=== PATIENT | male | born 2005 | race Hispanic/Latino ===

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

== ENCOUNTER 2023-05-11 15:10 | Emergency (ER) | payer OTHER, SELFPAY ==
--- NOTE | 2023-05-11 15:27 | ED.URI ---
HPI - URI/Sore Throat General Chief Complaint: Upper Respiratory Infection Stated Complaint: Sore Throat,Dizziness,Fatigue Time Seen by Provider: 05/11/23 15:27 Source: patient Mode of arrival: ambulatory Limitations: no limitations History of Present Illness HPI Narrative: 17-year-old male presents with complaint of sore throat, nasal congestion, cough, fatigue, fever for 2 days. Taking DayQuil to treat his symptoms. Positive nausea. Eating and drinking normally. All systems reviewed and negative except as noted above. Related Data Home Medications Medication Instructions Recorded Confirmed No Home Medications 11/30/22 05/11/23 Allergies Allergy/AdvReac Type Severity Reaction Status Date / Time No Known Allergies Allergy Unknown Verified 05/11/23 15:24 Review of Systems Review of Systems: CONSTITUTIONAL: Reports fever, chills, or sweats. EYES: Denies visual changes, redness, or discharge. ENT: Reports rhinorrhea, congestion, sore throat. Otalgia. CARDIOVASCULAR: Denies chest pain, palpitations, or edema. RESPIRATORY: Reports cough. Denies dyspnea. GASTROINTESTINAL: Denies abdominal pain, nausea, vomiting, or diarrhea. GENITOURINARY: Denies dysuria or hematuria. SKIN: Denies rash or itching. MUSCULOSKELETAL: Denies back pain, joint pain, or myalgia. NEUROLOGIC: Denies headache, numbness, or weakness. PSYCHIATRIC: Denies anxiety or depression. All other systems reviewed are negative, except as documented in HPI. PMFSH Surgical History Surgical History History of fracture of right ankle s/p ORIF Family History Family History Father Diabetes mellitus Hypertension Cerebrovascular accident Social History Social History Smoking status: Never smoker Gender identity (if verbalized by the patient): Male Sexual Orientation (if Verbalized by the Patient): Straight or Heterosexual Comments At time of signature, agree with nursing past medical, surgical, social and family history. There is no relevant family history pertinent to the presenting complaint. Exam Narrative: GENERAL: This is a well-nourished, well-developed patient, in no apparent distress. HEAD: normocephalic, atraumatic. EYES: PERRL. Sclera clear/white. Vision is grossly intact. EARS: External ears normal, auditory canals clear and without drainage, TMs normal without perforation. Hearing grossly intact. NOSE: External nose normal with no obvious nasal discharge, nares without redness, no rhinorrhea. THROAT: Mucous membranes moist, erythematous without exudates. NECK: Neck supple, non-tender without lymphadenopathy, masses or thyromegaly. CARDIOVASCULAR: Regular rate and rhythm without murmurs, gallops, or rubs. RESPIRATORY: Clear to auscultation. Breath sounds equal bilaterally. No wheezes, rales, or rhonchi. SKIN: warm, Dry, intact with no suspicious lesions or rash, good texture and turgor. NEURO: awake, alert, and oriented to person, place and time. There were no obvious focal neurologic abnormalities. EXTREMITIES: No joint tenderness, effusion, or edema noted. Course Course Level of Care: Express Care Visit Vital Signs Vital signs: Vital Signs Temperature 37.8 C H 05/11/23 15:30 Pulse Rate 107 H 05/11/23 15:30 Respiratory Rate 16 05/11/23 15:30 Blood Pressure 118/87 05/11/23 15:30 Pulse Oximetry 100 05/11/23 15:30 Temperature 37.8 C H 05/11/23 15:30 Pulse Rate 107 H 05/11/23 15:30 Respiratory Rate 16 05/11/23 15:30 Blood Pressure 118/87 05/11/23 15:30 Pulse Oximetry 100 05/11/23 15:30 Reviewed MDM - URI/Sore Throat MDM Narrative Medical decision making narrative: Patient is aware of diagnosis, understands and agrees to treatment plan. Anticipatory guidance given. Patient agrees to follow-up as directed and
[2023-05-11 15:30] VITALS: BP 118/87; PULSE 107; RESP 16; TEMP 37.8; O2SAT 100
== END 2023-05-11 15:58 | disposition home or self-care (01) ==
PROVIDERS: Emergency Provider Nurse Practitioner Family; PCP Family Medicine
DX: J06.9 Acute upper respiratory infection, unspecified (principal); Z20.822 Contact with and (suspected) exposure to COVID-19
CPT/HCPCS: 87081; 87426; 87804; 87880; 99213; C9803; G0463

== ENCOUNTER 2023-05-13 09:28 | Outpatient (CLI) | payer OTHER, SELFPAY ==
[2023-05-13 11:00] LABS: Influenza A QL RT-PCR Negative (Negative); Influenza B QL RT-PCR Negative (Negative); SARS-CoV-2 RNA PCR Negative (Negative)
== END 2023-05-13 09:29 | disposition home or self-care (01) ==
PROVIDERS: PCP Family Medicine; Visit Provider Physician Assistant
DX: R50.9 Fever, unspecified (principal); Z20.822 Contact with and (suspected) exposure to COVID-19
CPT/HCPCS: 87636

== ENCOUNTER 2024-02-11 12:39 | Emergency (ER) | payer OTHER, SELFPAY ==
[2024-02-11 12:46] VITALS: BP 148/86; PULSE 92; RESP 16; TEMP 36.8; O2SAT 99
--- NOTE | 2024-02-11 12:51 | ED.EAR ---
HPI - Ear Problem General Chief complaint: Ear Stated complaint: R EAR CLOGGED Time Seen by Provider: 02/11/24 12:51 Source: patient, RN notes reviewed and old records reviewed Mode of arrival: ambulatory Limitations: no limitations History of Present Illness HPI Narrative: patient presents with complaints of right ear discomfort for a few days. He reports feelings of muffled hearing and stuffiness. He denies any fever, chills, sweats. He has a deviated septum, uses Flonase daily for congestion. He has not noticed any unusual congestion. He denies any injury or trauma. Voices no other concerns today Related Data Allergies Allergy/AdvReac Type Severity Reaction Status Date / Time No Known Allergies Allergy Unknown Verified 06/01/23 08:30 Review of Systems Review of Systems: All systems reviewed & are unremarkable except as noted in HPI and below Constitutional: Constitutional: Reports no additional constitutional complaints ENT: Reports system reviewed and no additional complaints, except as documented and Reports as per HPI Cardiovascular: Cardiovascular: Reports no additional cardiovascular complaints Respiratory: Respiratory: Reports no additional respiratory complaints Gastrointestinal: Gastrointestinal: Reports no additional gastrointestinal complaints [facility] Surgical History Surgical History History of fracture of right ankle s/p ORIF Family History Family History Father Diabetes mellitus Hypertension Cerebrovascular accident Grandparent Diabetes mellitus Heart disease Social History Social History Smoking status: Never smoker Alcohol intake: never Substance use: never Substance use type: does not use Lack of Transportation: No Lack of Food: Never True Current Housing: I Have Housing Concerned About Future Housing: No Difficulty Paying Gas/Electric Bills: No Difficulty Paying for Meds: No Currently Unemployed: No Education: High School Diploma/GED Difficulty w/ Childcare or Family Care: No Gender identity (if verbalized by the patient): Male Sexual Orientation (if Verbalized by the Patient): Straight or Heterosexual Comments At the time of my signature, I reviewed and agree with the nursing past medical, surgical, social, and family history. There is no relevant family history pertinent to the patient complaint. Exam Const: General: cooperative, no acute distress, alert and awake Orientation/consciousness: oriented to person, oriented to place and oriented to time HENMT: Head: normal to inspection Ears: TM abnormal (right) bulging, dull and erythematous Throat: posterior oropharynx normal Resp: Effort & Inspection: normal respiratory effort and able to speak in complete sentences Auscultation: clear to auscultation bilaterally, no crackles, no rales, no rhonchi and no wheezes Cardio: Palpation: normal PMI Rate: regular rate Rhythm: regular rhythm Heart sounds: S1 normal heart sound present and S2 normal heart sound present Neuro: General: oriented to person, oriented to place and oriented to time Cranial nerves: Yes CN's II-XII intact bilaterally Psych: Appearance: grossly normal Thought process: Normal thought process present Insight: Good insight present (Psych) Judgement: Good judgement present (Psych) Course Course Level of Care: Express Care Visit Vital Signs Vital signs: Vital Signs Temperature 98.3 F 02/11/24 12:46 Pulse Rate 92 02/11/24 12:46 Respiratory Rate 16 02/11/24 12:46 Blood Pressure 148/86 H 02/11/24 12:46 Pulse Oximetry 99 02/11/24 12:46 Temperature 98.3 F 02/11/24 12:46 Pulse Rate 92 02/11/24 12:46 Respiratory Rate 16 02/11/24 12:46 Blood Pressure 148/86 H 02/11/24 12:46 Pulse Oximetry 99 02/11/24 12:46 Reviewed M
== END 2024-02-11 13:00 | disposition home or self-care (01) ==
PROVIDERS: Emergency Provider Nurse Practitioner Family; PCP Family Medicine
DX: H66.001 Acute suppurative otitis media without spontaneous rupture of ear drum, right ear (principal)
CPT/HCPCS: 99213; G0463

== ENCOUNTER 2024-03-16 15:37 | Emergency (ER) | payer OTHER, SELFPAY ==
--- NOTE | 2024-03-16 15:48 | ED.GENADULT ---
HPI - General Adult General Chief complaint: Skin/Abscess/Foreign Body Stated complaint: Cyst Time Seen by Provider: 03/16/24 15:48 Source: patient, RN notes reviewed and old records reviewed Mode of arrival: ambulatory Limitations: no limitations History of Present Illness HPI narrative: 18-year-old male to Express [facility] for complaint wound to mid upper buttocks for 3 days. Patient states that wound began draining yesterday. Patient states that area is acutely tender to touch and painful when sitting down. Patient denies any pertinent medical history, states this is the 1st time this has occurred. Patient denies fever, nausea, myalgias, chills, allergies. Patient very anxious in exam room about having the area inspected and treated by [facility] staff. Respirations even and nonlabored. Patient in no acute distress. Related Data Allergies Allergy/AdvReac Type Severity Reaction Status Date / Time No Known Allergies Allergy Unknown Verified 03/16/24 15:48 Review of Systems Review of Systems: All systems reviewed & are unremarkable except as noted in HPI and below Constitutional: Constitutional: Reports no additional constitutional complaints Eyes: Eyes: Reports no additional eye complaints ENT: Reports system reviewed and no additional complaints, except as documented Cardiovascular: Cardiovascular: Reports no additional cardiovascular complaints, Denies chest pain and Denies dyspnea Respiratory: Respiratory: Reports no additional respiratory complaints, Denies cough and Denies dyspnea Musculoskeletal: Musculoskeletal: Reports no additional musculoskeletal complaints Integumentary/Breasts: Skin/Breast: Reports as per HPI and Reports lesions ( Mid upper buttocks) Neurologic: Reports system reviewed and no additional complaints, except as documented Psychiatric: Psychiatric: Reports no additional psychiatric complaints [facility] Surgical History Surgical History History of fracture of right ankle s/p ORIF Family History Family History Father Diabetes mellitus Hypertension Cerebrovascular accident Grandparent Diabetes mellitus Heart disease Social History Social History Smoking status: Never smoker Alcohol intake: never Substance use: never Substance use type: does not use Lack of Transportation: No Lack of Food: Never True Current Housing: I Have Housing Concerned About Future Housing: No Difficulty Paying Gas/Electric Bills: No Difficulty Paying for Meds: No Currently Unemployed: No Education: High School Diploma/GED Difficulty w/ Childcare or Family Care: No Gender identity (if verbalized by the patient): Male Sexual Orientation (if Verbalized by the Patient): Straight or Heterosexual Comments At the time of my signature, I reviewed and agree with the nursing past medical, surgical, social, and family history. There is no relevant family history pertinent to the patient complaint. Exam Const: General: cooperative, healthy appearing, no acute distress, alert, anxious, uncomfortable and well nourished Nutritional Appearance: well nourished Orientation/consciousness: patient oriented x3 Limitations: no limitations HENMT: Head: normal to inspection Ears: external ears normal Face/Nose/Sinus: Normal external nose present, Normal nares present, normal facial exam, No erythema and No edema Face and sinus: normal facial exam, no erythema and no edema Mouth: Yes Normal oral and palatal mucosa present Eyes: General: appearance normal, both eyes and all related structures Neck: Neck: normal visual inspection, full ROM and no meningeal signs Chest: Chest palpation & inspection: normal inspection of the chest Resp: Effort & Inspection: normal respiratory effort and able to speak in complete
[2024-03-16 15:49] VITALS: BP 163/89; PULSE 71; RESP 16; TEMP 36.7; O2SAT 100
[2024-03-16] MEDS: LIDOCAINE HCL 1% LOCAL INJ 2 ML AMPUL 4 ML INFILTRATE ×2 (16:20→16:30)
== END 2024-03-16 16:42 | disposition home or self-care (01) ==
PROVIDERS: Emergency Provider Nurse Practitioner Family; PCP Family Medicine
DX: L02.212 Cutaneous abscess of back [any part, except buttock and flank] (principal)
CPT/HCPCS: 10060; 87070; 87075; 87076; 87205; 99213; G0463

== ENCOUNTER 2024-10-22 16:11 | Emergency (ER) | payer OTHER, SELFPAY ==
--- NOTE | 2024-10-22 16:13 | ED.NAVMDI ---
HPI - Nausea/Vomiting/Diarrhea General Chief complaint: Nausea/Vomiting/Diarrhea Stated complaint: Vomiting Source: patient and RN notes reviewed Mode of arrival: ambulatory Limitations: no limitations History of Present Illness HPI Narrative: Patient is a 19-year-old male who presents to the [facility] after having 1 episode of vomiting while at work today. Patient states that he works at [employer]. He reports having a sore throat the majority of the day prior to vomiting. He denies abdominal pain or diarrhea. Denies cough, chest pain, shortness of breath. Denies recent fevers. He was advised by his employer to come get checked out. Patient does state that he was very nervous this morning as he had a big test so he is unsure whether not the vomiting was related to anxiety. Related Data Allergies Allergy/AdvReac Type Severity Reaction Status Date / Time No Known Allergies Allergy Unknown Verified 10/22/24 16:21 Review of Systems Review of Systems: CONSTITUTIONAL: Denies fever, chills, or sweats. EYES: Denies visual changes, redness, or discharge. ENT: Denies otalgia but reports sore throat CARDIOVASCULAR: Denies chest pain, palpitations, or edema. RESPIRATORY: Denies cough or dyspnea. GASTROINTESTINAL: Denies abdominal pain, nausea, diarrhea but reports vomiting GENITOURINARY: Denies dysuria or hematuria. SKIN: Denies rash or itching. MUSCULOSKELETAL: Denies back pain, joint pain, or myalgia. NEUROLOGIC: Denies headache, numbness, or weakness. Pertinent positives per HPI. [facility] Surgical History Surgical History History of fracture of right ankle s/p ORIF Family History Family History Father Diabetes mellitus Hypertension Cerebrovascular accident Grandparent Diabetes mellitus Heart disease Social History Social History Smoking status: Never smoker Alcohol intake: never Substance use: never Substance use type: does not use Lack of Transportation: No Lack of Food: Never True Current Housing: I Have Housing Concerned About Future Housing: No Difficulty Paying Gas/Electric Bills: No Difficulty Paying for Meds: No Currently Unemployed: No Education: High School Diploma/GED Difficulty w/ Childcare or Family Care: No Gender identity (if verbalized by the patient): Male Sexual Orientation (if Verbalized by the Patient): Straight or Heterosexual Comments At the time of my signature, I reviewed and agree with the nursing past medical, surgical, social, and family history. There is no relevant family history pertinent to the patient complaint. Exam Narrative: GENERAL: This is a well-nourished, well-developed patient, in no apparent distress. HEAD: normocephalic, atraumatic. EYES: Sclera clear/white. Vision is grossly intact. EARS: External ears normal, auditory canals clear and without drainage, TMs normal without perforation. Hearing grossly intact. NOSE: External nose normal with no obvious nasal discharge, nares without redness, no rhinorrhea. THROAT: Mucous membranes moist, oropharyngeal erythema without exudate or ulceration. NECK: Neck supple, non-tender without lymphadenopathy, masses or thyromegaly. CARDIOVASCULAR: Regular rate and rhythm without murmurs, gallops, or rubs. RESPIRATORY: Clear to auscultation. Breath sounds equal bilaterally. No wheezes, rales, or rhonchi. GASTROINTESTINAL: Abdomen soft, non-tender, nondistended. Bowel sounds are active. No hepato-splenomegaly, or palpable masses. No guarding. SKIN: warm, intact with no suspicious lesions or rash, good texture and turgor. NEURO: awake, alert, and oriented to person, place and time. There were no obvious focal neurologic abnormalities. Course Course Level of Care: Express Care Visit Vital Signs Vital signs: Vital Signs Temperature 98.7 F 10/22/24 16:18 Pulse Rate 81 10/22/24 16:18 Respiratory Rate 18 10/22/24 16:18 Blood Pressure 152/85 H 10/22/24 16:18 Pulse Oximetry 100 10/22/24 16:18 Temperature 98.7 F 10/22/24 16:18 Pulse Rate 81 10/22/24 16:18 Respiratory Rate 18 10/22/24 16:18 Blood Pressure 152/85 H 10/22/24 16:18 Pulse Oximetry 100 10/22/24 16:18 Reviewed MDM - Nausea/Vomiting/Diarrhea Differential Diagnosis Differential diagnosis: Likely gastroenteritis and other (strep, viral illness) Lab Data Attestation: I reviewed the patient's lab results. Critical Care Time Critical Care Time Critical Care Time: No Discharge Plan Discharge Clinical Impression: Vomiting Qualifiers: Vomiting type: unspecified Nausea presence: unspecified Qualified Code(s): R11.10 - Vomiting, unspecified Patient Disposition: Home, Self-Care Condition: Stable Instructions: Acute Nausea and Vomiting (ED) Additional Instructions: Rest and push fluids. Follow-up with PCP as needed. Patient Language: [place] Island[place] Prescriptions: New ondansetron 4 mg tablet,disintegrating 4 mg PO Q8H PRN (Reason: nausea and vomiting) Qty: 10 0RF Follow-up/Referrals: PHYSICIAN,ASSET SPECIALIST [Primary Care Provider] - Stand Alone Forms: Work/School Release IP Time of Disposition: 16:33
[2024-10-22 16:18] VITALS: BP 152/85; PULSE 81; RESP 18; TEMP 37.1; O2SAT 100
[2024-10-22 16:35] LABS: EDSTREPNEGPOS1 Negative (Negative)
== END 2024-10-22 16:34 | disposition home or self-care (01) ==
PROVIDERS: Emergency Provider Nurse Practitioner
DX: R11.10 Vomiting, unspecified (principal)
CPT/HCPCS: 87081; 87880; 99213; G0463

== ENCOUNTER 2025-05-18 03:27 | Emergency (ER) | payer OTHER, SELFPAY ==
--- NOTE | ~2025-05-18 | XR_ITS ---
Examination: XR chest 2V Clinical History: chest tightness Comparison: None Technique: PA and Lateral Findings: Cardiomediastinal silhouette normal size and configuration. Lungs clear. No acute bony abnormality. IMPRESSION: 1. No acute cardiopulmonary findings. Reviewed, dictated and finalized at location R.
[2025-05-18 03:31] VITALS: BP 166/96; PULSE 86; RESP 22; TEMP 36.6; O2SAT 99
--- NOTE | 2025-05-18 03:37 | ECG_ITS ---
Test Date: 2025-05-18 03:49:12 Measurements Intervals Garber Rate: 75 P: 52 OH: 147 QRS: 87 QRSD: 104 T: 47 QT: 358 QTc: 400 Interpretive Statements SINUS RHYTHM ST ELEVATION IN DIFFUSE LEADS- PROBABLY EARLY REPOLARIZATION BASELINE ARTIFACT- I, III, AVR, AVL, V2 BORDERLINE ECG No previous ECG available for comparison Electronically Signed On 05-18-2025 08:17:49 CDT by Rafa Jose D.O.
[2025-05-18 03:54] LABS: Hematocrit 46.0 % (42.0-52.0); Hemoglobin 15.7 g/dL (14.0-18.0); Immature Granulocyte Percent A 0.3 % (0-0.5); Lymphocytes Absolute Auto 3.70 K/mm3 (0.9-3.2); Mean Corpuscular HGB Conc 34.1 g/dl (32-36); Mean Corpuscular Hemoglobin 28.3 pg (26-34); Mean Corpuscular Volume 82.9 fl (80-100); Nucleated Red Blood Cells Absolute Auto 0.000 K/mm3 (0.0-0.012); Nucleated Red Blood Cells Perc 0.0 % (0.0-0.2); Platelet Count Result 203 k/mm3 (150-375); Red Blood Count 5.55 M/mm3 (4.6-6.20); White Blood Count 9.4 K/mm3 (4.5-10.0)
[2025-05-18 04:04] LABS: Alanine Aminotransferase 104 U/L (6-50); Albumin Level 4.7 g/dL (3.5-5.1); Alkaline Phosphatase 94 U/L (38-126); Anion Gap 11 mmol/L (4-12); Aspartate Amino Transferase 58 U/L (17-59); Bilirubin,Total 0.5 mg/dL (0.2-1.3); Blood Urea Nitrogen 12 mg/dL (9-20); Calcium 9.1 mg/dL (8.4-10.2); Carbon Dioxide 23 mmol/L (22-30); Chloride 102 mmol/L (98-107); Estimated CRCL calculation 123 ml/min; Estimated Glomerular Filt Rate > 60; Glucose 112 mg/dL (65-110); Lipase 60 U/L (23-300); Potassium 3.4 mmol/L (3.4-5.0); Sodium 136 mmol/L (137-145); Total Protein 7.7 g/dL (6.3-8.2)
[2025-05-18 04:16] LABS: Troponin I < 0.012 ng/mL (0.000-0.034)
--- NOTE | 2025-05-18 04:28 | ED.WEAKNESS ---
HPI - Weakness General Chief complaint: Weakness Stated complaint: weakness, n/v Time Seen by Provider: 05/18/25 04:27 Source: patient and EMS Mode of arrival: EMS Limitations: no limitations History of Present Illness HPI Narrative: This is a 19-year-old male with no significant past medical history presents the ED for chest pain, lightheadedness, nausea. Patient states that he was sitting at home when he had onset of the symptoms. They last about an hour before EMS showed up at which point the dizziness became slightly worse. Symptoms have improved significantly since then. He does report some mild lightheadedness. Denies recent illnesses. No known cardiac history. No known family cardiac history. Denies drugs alcohol new medications. Denies any new stress. He has never had anything like this before. Related Data Allergies Allergy/AdvReac Type Severity Reaction Status Date / Time No Known Allergies Allergy Unknown Verified 10/22/24 16:21 Review of Systems Review of Systems: Gen.: Denies fevers or chills Eyes: Denies eye pain or visual change ENT: Denies congestion Respiratory: Denies shortness of breath or cough CV: As per HPI GI: Denies abdominal pain nausea, emesis or diarrhea denies burning, urgency, frequency or hematuria Musculoskeletal: Denies back pain or muscle pain Neuro: Denies numbness, tingling, weakness or focal weakness Skin: Denies rash Except as documented, all other systems reviewed and negative [facility] Surgical History Surgical History History of fracture of right ankle s/p ORIF Family History Family History Father Diabetes mellitus Hypertension Cerebrovascular accident Grandparent Diabetes mellitus Heart disease Social History Social History Smoking status: Never smoker Alcohol intake: never Substance use: never Substance use type: does not use Lack of Transportation: No Lack of Food: Never True Current Housing: I Have Housing Concerned About Future Housing: No Difficulty Paying Gas/Electric Bills: No Difficulty Paying for Meds: No Currently Unemployed: No Education: High School Diploma/GED Difficulty w/ Childcare or Family Care: No Gender identity (if verbalized by the patient): Male Sexual Orientation (if Verbalized by the Patient): Straight or Heterosexual Exam Narrative: APPEARANCE: No acute distress, nontoxic, resting in bed EYES: EOMI HEENT: Normocephalic, atraumatic, OMM RESPIRATORY: No respiratory distress Clear to auscultation bilaterally with no rhonchi wheezing or rales. CARDIOVASCULAR: Regular rate and rhythm without murmurs rubs or gallops. ABDOMINAL: Soft, nontender, nondistended, no rebound or guarding MUSCULOSKELETAl: Moves all extremities. No clubbing, cyanosis or edema. NEURO: Awake and alert. Following commands, speech normal, no focal deficits SKIN:: Warm, dry. No rashes lesions or abrasions PSYCHIATRIC: Normal affect/mood, Course Vital Signs Vital signs: Vital Signs Temperature 97.8 F 05/18/25 03:31 Pulse Rate 86 05/18/25 03:31 Respiratory Rate 22 H 05/18/25 03:31 Blood Pressure 166/96 H 05/18/25 03:31 Pulse Oximetry 99 05/18/25 03:31 Oxygen Delivery Room Air 05/18/25 03:31 Temperature 98.2 F 05/18/25 06:11 Pulse Rate 82 05/18/25 06:11 Respiratory Rate 20 05/18/25 06:11 Blood Pressure 129/71 05/18/25 06:11 Pulse Oximetry 97 05/18/25 06:11 Oxygen Delivery Room Air 05/18/25 03:31 MDM - Weakness MDM Narrative Medical decision making narrative: 19-year-old male presenting for chest tightness with dizziness. On initial evaluation, patient was in no acute distress, afebrile, hemodynamically stable. Heart and lungs clear. Abdomen soft and nontender. Nonfocal neuro exam. Orthostatic blood pressures were obtained and were negative. CBC and CMP without significant abnormalities. Chest x-ray showed no acute process. EKG without concerning findings. Patient's EKGs and labs are without significant high risk changes. Cardiac risk factors reviewed. Patient is felt likely low risk for ACS and reasonable for further risk stratification testing as an outpatient. Pain was not sudden or maximal in onset without tearing or ripping quality. No other signs of symptoms suggest aortic dissection. A low-risk Wells criteria is noted, PE is felt to be unlikely. No pneumonia seen on evaluation today. Patient is felt to be a reasonable candidate for continued evaluation as an outpatient. Suspect patient's symptoms are more due to anxiety. He was given a referral to Dr. Carmona, family medicine Differential Diagnosis Differential diagnosis: Likely anemia, hypoglycemia, sepsis, dehydration and other (ACS anxiety, orthostatic hypotension) Medical Records Attestation: I reviewed the patient's medical records. Lab Data Attestation: I reviewed the patient's lab results. 05/18/25 03:47 05/18/25 03:47 Labs: Lab Results 05/18/25 05/18/25 Range/Units 03:47 05:54 WBC 9.4 (4.5-10.0) K/mm3 RBC 5.55 (4.6-6.20) M/mm3 Hgb 15.7 (14.0-18.0) g/dL Hct 46.0 (42.0-52.0) % MCV 82.9 (80-100) fl MCH 28.3 (26-34) pg MCHC 34.1 (32-36) g/dl RDW 12.4 (11.5-14.5) % Plt Count 203 (150-375) k/mm3 MPV 11.6 H (7.4-10.4) fl Immature Gran % (Auto) 0.3 (0-0.5) % Neut % (Auto) 52.5 (45.5-73.1) % Lymph % (Auto) 39.4 (18.3-44.2) % Moore % (Auto) 6.6 (2.6-8.5) % Eos % (Auto) 1.0 (0-4.4) % Baso % (Auto) 0.2 (0.2-1.2) % Lymph # (Auto) 3.70 H (0.9-3.2) K/mm3 Moore # (Auto) 0.6 (0.1-0.6) K/mm3 Eos # (Auto) 0.1 (0-0.3) K/mm3 Baso # (Auto) 0.0 (0.0-0.1) K/mm3 Abs Immat Gran (auto) 0.03 (0.00-0.031) K/mm3 Absolute Neuts (auto) 4.9 (1.3-6.7) K/mm3 Absolute Nucleated RBC 0.000 (0.0-0.012) K/mm3 Nucleated RBC % 0.0 (0.0-0.2) % PT 12.6 (11.1-14.7) Seconds INR 0.9 APTT 27.9 (22.3-36.8) Seconds Sodium 136 L (137-145) mmol/L Potassium 3.4 (3.4-5.0) mmol/L Chloride 102 (98-107) mmol/L Carbon Dioxide 23 (22-30) mmol/L Anion Gap 11 (4-12) mmol/L BUN 12 (9-20) mg/dL Creatinine 0.92 (0.7-1.3) mg/dL Estim Creat Clear Calc 123 ml/min Estimated GFR > 60 (59 - ) Glucose 112 H (65-110) mg/dL Calcium 9.1 (8.4-10.2) mg/dL Total Bilirubin 0.5 (0.2-1.3) mg/dL AST 58 (17-59) U/L ALT 104 H (6-50) U/L Alkaline Phosphatase 94 (38-126) U/L Troponin I < 0.012 (0.000-0.034) ng/mL Total Protein 7.7 (6.3-8.2) g/dL Albumin 4.7 (3.5-5.1) g/dL Lipase 60 (23-300) U/L Influenza A (RT-PCR) Negative (Negative) Influenza B (RT-PCR) Negative (Negative) RSV (RT-PCR) Negative (Negative) SARS-CoV-2 RNA (RT-PCR) Negative (Negative) Imaging Data Attestation: I personally reviewed and interpreted this imaging study as follows: My impression: Chest x-ray: Normal cardiac silhouette, no consolidations, no pleural effusions, no pulmonary vascular congestion Radiologist's impression: Impressions Chest X-Ray 05/18/25 06:16 IMPRESSION: 1. No acute cardiopulmonary findings. ECG Data EKG #1: Attestation: I personally reviewed and interpreted this ECG as follows: ECG completion date: 05/18/25 ECG completion time: 03:49 Interpretation: Normal sinus rhythm, normal axis, normal intervals, no acute ST or T-wave changes Discharge Plan Discharge Clinical Impression: Chest tightness Patient Disposition: Home Condition: Stable Instructions: Antibiotic Form, Chest Pain (DC) Additional Instructions: Labs, EKG, chest x-ray were obtained and were all reassuring that there is no cardiac damage at this time. It is unclear the source or symptoms at this time. Continue to drink plenty of water. Your given a referral to Dr. Carmona, Family Medicine, to establish care, follow-up with his office in the next week for re-evaluation. Return to the ED for any new or worsening symptoms. Patient Language: Monegasque Prescriptions: No Action ondansetron 4 mg tablet,disintegrating 4 mg PO Q8H PRN (Reason: nausea and vomiting) Qty: 10 0RF Follow-up/Referrals: Fatmata Carmona DO [Physician, Family Practice] PHYSICIAN,[facility] CERTIFIED NETWORK ASSOCIATE [Primary Care Provider, Internal Medicine] Stand Alone Forms: Work/School Release IP
[2025-05-18 04:34] LABS: INR 0.9; Prothrombin Time 12.6 Seconds (11.1-14.7)
[2025-05-18 04:35] LABS: Partial Thromboplastin Time 27.9 Seconds (22.3-36.8)
[2025-05-18 05:37] VITALS: BP 129/71
[2025-05-18 05:39] VITALS: BP 128/80
[2025-05-18 05:44] VITALS: BP 144/94
[2025-05-18 06:11] VITALS: BP 129/71; PULSE 82; RESP 20; TEMP 36.8; O2SAT 97
[2025-05-18 06:36] LABS: Influenza A QL RT-PCR Negative (Negative); Influenza B QL RT-PCR Negative (Negative); RSV RNA, RT-PCR Negative (Negative); SARS-CoV-2 RNA PCR Negative (Negative)
== END 2025-05-18 06:12 | disposition home or self-care (01) ==
PROVIDERS: Emergency Provider Student in an Organized Health Care Education/Training Program
DX: R07.89 Other chest pain (principal); Z20.822 Contact with and (suspected) exposure to COVID-19
CPT/HCPCS: 36415; 71046; 80053; 83690; 84484; 85025; 85610; 85730; 87637; 93005; 99284

== ENCOUNTER 2025-07-19 14:41 | Emergency (ER) | payer OTHER, SELFPAY ==
[2025-07-19 15:01] VITALS: BP 131/81; PULSE 69; RESP 18; TEMP 36.9; O2SAT 100
--- NOTE | 2025-07-19 16:00 | ED.URI ---
HPI - URI/Sore Throat General Chief Complaint: Upper Respiratory Infection Stated Complaint: Sore throat, ears hurt, congestion Time Seen by Provider: 07/19/25 16:00 Source: patient, RN notes reviewed and old records reviewed Mode of arrival: ambulatory Limitations: no limitations History of Present Illness HPI Narrative: 19-year-old male presents to the [facility] with 3 day history, ear pressure, congestion, chills sinus drainage. Did take DayQuil this morning. Related Data Home Medications ?Medication ?Instructions ?Recorded ?Confirmed ?Last Taken ?Type No Home Medications 07/19/25 07/19/25 Unknown History Allergies Allergy/AdvReac Type Severity Reaction Status Date / Time No Known Allergies Allergy Unknown Verified 07/19/25 15:30 Review of Systems Review of Systems: All systems reviewed & are unremarkable except as noted in HPI and below Constitutional: Constitutional: Reports no additional constitutional complaints ENT: Reports as per HPI Cardiovascular: Cardiovascular: Reports no additional cardiovascular complaints, Denies chest pain and Denies dyspnea Respiratory: Respiratory: Reports no additional respiratory complaints, Denies chest congestion, Denies cough and Denies dyspnea Musculoskeletal: Musculoskeletal: Reports no additional musculoskeletal complaints Integumentary/Breasts: Skin/Breast: Reports system reviewed and no additional complaints, except as docu PMFSH Surgical History Surgical History History of fracture of right ankle s/p ORIF Family History Family History Father Diabetes mellitus Hypertension Cerebrovascular accident Grandparent Diabetes mellitus Heart disease Social History Social History Smoking status: Never smoker Alcohol intake: never Substance use: never Substance use type: does not use Lack of Transportation: No Lack of Food: Never True Current Housing: I Have Housing Concerned About Future Housing: No Difficulty Paying Gas/Electric Bills: No Difficulty Paying for Meds: No Currently Unemployed: No Education: High School Diploma/GED Difficulty w/ Childcare or Family Care: No Gender identity (if verbalized by the patient): Male Sexual Orientation (if Verbalized by the Patient): Straight or Heterosexual Comments At the time of my signature, I reviewed and agree with the nursing past medical, surgical, social, and family history. There is no relevant family history pertinent to the patient complaint. Exam Const: General: cooperative, healthy appearing, comfortable, no acute distress, well developed, alert and well nourished Nutritional Appearance: well nourished Orientation/consciousness: patient oriented x3 Limitations: no limitations HENMT: Head: normal to inspection Ears: hearing grossly normal bilaterally, external ears normal, TM's normal bilaterally, EAC's normal, mastoids normal and no periauricular adenopathy Face/Nose/Sinus: Normal external nose present and Normal nares present Throat: posterior oropharynx normal, uvula midline, postnasal drainage and no uvular edema Eyes: General: appearance normal, both eyes and all related structures Alignment and Position: alignment normal Neck: Neck: normal visual inspection, full ROM, no lymphadenopathy and no meningeal signs Chest: Chest palpation & inspection: normal inspection of the chest Resp: Effort & Inspection: normal respiratory effort and able to speak in complete sentences Auscultation: clear to auscultation bilaterally, no crackles, no rales, no rhonchi and no wheezes Cardio: Rate: regular rate Skin: General skin exam: normal color and no rashes or lesions noted Neuro: General: patient oriented x3, gait normal, moves all extremities and no meningeal signs Cognition (Neuro): normal cognition Speech: normal speech Gait exam (Neuro): Normal gait present Extrem: General: normal to inspection, full ROM, capillary refill normal and normal gait Psych: Appearance: grossly normal and well kempt Mental Status: mental status grossly normal Speech and movement: Normal speech and movement present and Clear speech present Affect: normal affect Attitude: cooperative Course Course Level of Care: Express Care Visit Vital Signs Vital signs: Vital Signs Temperature 98.5 F 07/19/25 15:01 Pulse Rate 69 07/19/25 15:01 Respiratory Rate 18 07/19/25 15:01 Blood Pressure 131/81 07/19/25 15:01 Pulse Oximetry 100 07/19/25 15:01 Temperature 98.5 F 07/19/25 15:01 Pulse Rate 69 07/19/25 15:01 Respiratory Rate 18 07/19/25 15:01 Blood Pressure 131/81 07/19/25 15:01 Pulse Oximetry 100 07/19/25 15:01 reviewed MDM MDM Narrative Medical decision making narrative: Patient sitting exam room. Patient presents with 3 day history of URI symptoms. Flu COVID strep negative. Postnasal drainage noted otherwise no other acute findings noted on exam. Patient is appropriate for outpatient treatment with close follow-up Discharge instructions reviewed with patient, as well as provided in writing per nursing staff. The instructions also include specific and strict return/GO TO THE ER as well as f/u information. All questions have been answered, and the patient deny any further questions with discharge and discharge plan. Some parts of this dictation were generated by voice recognition software and may contain typographical and/or grammatical inaccuracies. Differential Diagnosis Differential Diagnosis: Differential diagnostic considerations for upper respiratory infection include upper respiratory infection, croup, otitis media, sinusitis, viral infection, bronchitis, influenza, pharyngitis, strep, uvulitis.? Lab Data Labs: Lab Results 07/19/25 Range/Units 16:11 POC Influenza A Ag Negative (Negative) POC Influenza B Ag Negative (Negative) POC SARS CoV-2 Ag Negative (Negative) POC Grp A Strep Screen Negative (Negative) Reviewed Discharge Plan Discharge Clinical Impression: Upper respiratory infection, Viral infection Patient Disposition: Home Condition: Stable Instructions: Antibiotic Form, Upper Respiratory Infection (ED), Viral Syndrome (ED) Additional Instructions: Your rapid strep swab was negative today at [facility]. A throat culture will be sent to the laboratory for further testing. If the test is positive, you will receive a phone call within 48 hours and an appropriate antibiotic will be initiated at that time. Your rapid COVID test were negative Your rapid flu test was negative Your symptoms are likely due to a viral illness, which is not treated with antibiotics. Typically viral infections last 7-10 days, can linger for couple of weeks. It is very important to treat your symptoms. Drink plenty of water, Gatorade, Pedialyte, ice pops or Jell-O. -Alternate Tylenol and Motrin per package directions for fever or pain. You can alternate every 4 hours -Antihistamine medication such as Zyrtec/Claritin/Marita during the day can help improve symptoms. -doing daily nasal irrigations can help relieve pressure your sinuses. Things like a Neti pot -Use Flonase twice a day for 5 days then daily to help reduce the inflammation and dry up your sinuses. -You can also use Mucinex. Be sure to drink plenty of water with this medication at least 8 ounces with every dose and it is important to drink 8 to 10 glasses of water per day. Water is a natural decongestant -Eat and drink things that are easy to swallow, like tea or soup, or popsicles. -Oral rinses such as: Salt water gargles and/or may use topical anesthetic (eg. Chloraseptic spray) or lozenges to relieve dryness or throat pain). -Frequent hand washing or hand cash management coordinator is one of the best ways to prevent spread of infection. -Using a vaporizer or humidifier at night will also help thin secretions and help with coughing up phlegm. -Follow up with primary care provider in 7-10 days if condition is not improving - For new or worsening symptoms go directly to the nearest ER Patient Language: [place] Prescriptions: No Action No Home Medications Follow-up/Referrals: Darion Ramos MD [Primary Care Provider, Family Practice] - 2 Weeks Clinical Impression: Upper respiratory infection; Viral infection Stand Alone Forms: Work/School Release IP Time of Disposition: 16:06
[2025-07-19 16:13] LABS: EDCOVIDSCREEN Negative (Negative); EDINFLUASCREEN Negative (Negative); EDINFLUBSCREEN Negative (Negative); EDSTREPNEGPOS1 Negative (Negative)
== END 2025-07-19 16:10 | disposition home or self-care (01) ==
PROVIDERS: Emergency Provider Nurse Practitioner; PCP Family Medicine
DX: J06.9 Acute upper respiratory infection, unspecified (principal); B97.89 Other viral agents as the cause of diseases classified elsewhere; Z20.822 Contact with and (suspected) exposure to COVID-19
CPT/HCPCS: 87081; 87426; 87804; 87880; 99213; G0463